=== PATIENT | male | born 1965 | race African-American/Black ===

== ENCOUNTER 2021-01-02 21:08 | Emergency (ER) | payer OTHER, SELFPAY ==
[2021-01-03 00:40] LABS: Absolute Lymphocytes (CBC) 0.5 K/uL (0.7-4.9); Basophils % 0.2 % (0-1.3); Hematocrit 34.8 % (39.6-49.0); Lymphocytes % 5.6 % (15.3-44.8); MPV 7.8 fL (7.6-11.3); RBC Red Blood Cell Count 3.94 M/uL (4.33-5.43)
[2021-01-03] MEDS ORDERED: FAMOTIDINE 20 MG/2 ML VIAL IV ONE (00:56)
[2021-01-03] MEDS ORDERED: NA CHLORIDE 0.9% 1,000 ML ONE (00:56)
[2021-01-03] MEDS ORDERED: ONDANSETRON 4 MG/2 ML VIAL ONE (00:56)
[2021-01-03 01:03] LABS: ALT/SGPT 25 U/L (12-78); AST/SGOT 18 U/L (15-37); Albumin 3.5 g/dL (3.4-5.0); Alkaline Phosphatase 52 U/L (45-117); BUN Blood Urea Nitrogen 15 mg/dL (7-18); Bicarbonate 28 mmol/L (21-32); Bilirubin Direct < 0.1 mg/dL (0-0.2); Bilirubin Total 0.2 mg/dL (0.2-1.0); Glucose Level 95 mg/dL (74-106); Lipase 80 U/L (73-393); Potassium 4.2 mmol/L (3.5-5.1); Protein, Total 7.4 g/dL (6.4-8.2); Sodium Level 140 mmol/L (136-145)
[2021-01-03 01:51] LABS: Urine Blood Trace-lysed (Negative); Urine Glucose Negative (Negative); Urine Protein Negative (Negative); Urine Specific Gravity >=1.030 (1.005-1.030); Urine pH 5.5 (5.0-7.0)
--- NOTE | 2021-01-03 02:20 | EDPHYS ---
Physician Documentation [facility] Name: Rafael Hammond Age: 55 yrs Sex: Male : 1965 Arrival Date: 01/02/2021 Time: 21:11 Bed 16 Private MD: ED Physician Vega Garrett HPI: 01/03 00:05 This 55 yrs old Black Male presents to ER via EMS with complaints of ETOH Abuse, mh7 Vomiting. 00:05 The patient presents to the emergency department with nausea, that is mild, vomiting, mh7 that is intermittent, 2 times since the onset of symptoms, described as clear fluid. Onset: The symptoms/episode began/occurred just prior to arrival, today. Possible causes: Alcohol use. The symptoms are aggravated by nothing. The symptoms are alleviated by nothing. Associated signs and symptoms: Pertinent positives: nausea, vomiting, Pertinent negatives: abdominal pain, anorexia, belching, constipation, diarrhea, dysuria, fever, flatulence, GI bleeding, hematuria. Severity of symptoms: At their worst the symptoms were moderate today, in the emergency department the symptoms have improved markedly. Patient reports drinking beer then 2 glasses of vodka tonight. He later started having nausea and vomiting 2 episodes. He denies any headache, chest pain, abdominal pain, fever, cough, shortness of breath, diarrhea, dizziness, numbness/tingling, or weakness.. Historical: - Allergies: 01/02 22:26 No Known Allergies; kg - Home Meds: 22:26 None [Active]; kg ROS: 01/03 00:05 Constitutional: Negative for fever, chills, and weight loss, Eyes: Negative for injury, mh7 pain, redness, and discharge, ENT: Negative for injury, pain, and discharge, Neck: Negative for injury, pain, and swelling, Cardiovascular: Negative for chest pain, palpitations, and edema, Respiratory: Negative for shortness of breath, cough, wheezing, and pleuritic chest pain, Back: Negative for injury and pain, : Negative for injury, bleeding, discharge, and swelling, MS/Extremity: Negative for injury and deformity, Skin: Negative for injury, rash, and discoloration, Neuro: Negative for headache, weakness, numbness, tingling, and seizure, Psych: Negative for depression, anxiety, suicide ideation, homicidal ideation, and hallucinations, Allergy/Immunology: Negative for hives, rash, and allergies, Endocrine: Negative for neck swelling, polydipsia, polyuria, polyphagia, and marked weight changes, Hematologic/Lymphatic: Negative for swollen nodes, abnormal bleeding, and unusual bruising. Exam: 00:05 Constitutional: This is a well developed, well nourished patient who is awake, alert, mh7 and in no acute distress. Head/Face: Normocephalic, atraumatic. Eyes: Pupils equal round and reactive to light, extra-ocular motions intact. Lids and lashes normal. Conjunctiva and sclera are non-icteric and not injected. Cornea within normal limits. Periorbital areas with no swelling, redness, or edema. ENT: Nares patent. No nasal discharge, no septal abnormalities noted. Tympanic membranes are normal and external auditory canals are clear. Oropharynx with no redness, swelling, or masses, exudates, or evidence of obstruction, uvula midline. Mucous membranes moist. Neck: Trachea midline, no thyromegaly or masses palpated, and no cervical lymphadenopathy. Supple, full range of motion without nuchal rigidity, or vertebral point tenderness. No Meningismus. Chest/axilla: Normal chest wall appearance and motion. Nontender with no deformity. No lesions are appreciated. Cardiovascular: Regular rate and rhythm with a normal S1 and S2. No gallops, murmurs, or rubs. Normal PMI, no JVD. No pulse deficits. Respiratory: Lungs have equal breath sounds bilaterally, clear to auscultation and percussion. No rales, rhonchi or wheezes noted. No increased work of breathing, no retractions or nasal flaring. Abdomen/GI: Soft, non-tender, with normal bowel sounds. No distension or tympany. No guarding or rebound. No evidence of tenderness throughout. Back: No spinal tenderness. No costovertebral tenderness. Full range of motion. Skin: Warm, dry with normal turgor. Normal color with no rashes, no lesions, and no evidence of cellulitis. MS/ Extremity: Pulses equal, no cyanosis. Neurovascular intact. Full, normal range of motion. Neuro: Awake and alert, GCS 15, oriented to person, place, time, and situation. Cranial nerves II-XII grossly intact. Motor strength 5/5 in all extremities. Sensory grossly intact. Cerebellar exam normal. Normal gait. Psych: Awake, alert, with orientation to person, place and time. Behavior, mood, and affect are within normal limits. Vital Signs: 01/02 22:25 BP 94 / 53; Pulse 71; Resp 18; Temp 97.4(TE); Pulse Ox 100% on R/A; Weight 86.64 kg kg (R); Height 5 ft. 9 in. (175.26 cm) (R); Pain 0/10; 01/03 00:04 BP 117 / 72; Pulse 68; Resp 16 S; Pulse Ox 96% on R/A; bb 00:30 BP 101 / 61; Pulse 60; Resp 16; Pulse Ox 97% on R/A; jb4 01/02 22:25 Body Mass Index 28.21 (86.64 kg, 175.26 cm) kg MDM: 02:16 Differential diagnosis: gastritis, pancreatitis, Alcohol Intoxication. Data reviewed: [facility] vital signs, nurses notes, EMS record, lab test result(s), CBC, electrolytes, EKG. Data interpreted: Pulse oximetry: on room air is 97 %. Interpretation: normal. Counseling: I had a detailed discussion with the patient and/or guardian regarding: the historical points, exam findings, and any diagnostic results supporting the discharge/admit diagnosis, lab results, the need for outpatient follow up, to return to the emergency department if symptoms worsen or persist or if there are any questions or concerns that arise at home. Response to treatment: the patient's symptoms have resolved after treatment, the patient's blood pressure is in an acceptable range, mental status has returned to baseline, the patient no longer shows bradycardia, the patient is not short of breath, the patient is not tachycardic, the patient's pain is gone, the patient's temperature has normalized, the patient is now symptom free. 02:18 [facility] medically screened. [facility] 01/03 00:11 Order name: Acetaminophen; Complete Time: [facility] 01/03 00:11 Order name: Basic Metabolic Panel; Complete Time: : [facility] 01/03 00:11 Order name: CBC with Diff; Complete Time: : [facility] 01/03 00:11 Order name: ETOH Level; Complete Time: : [facility] 01/03 00:11 Order name: Hepatic Function; Complete Time: [facility] 01/03 00:11 Order name: PT-INR; Complete Time: : [facility] 01/03 00:11 Order name: Ptt, Activated; Complete Time: : [facility] 01/03 00:11 Order name: Salicylate; Complete Time: : [facility] 01/03 00:11 Order name: Urine Drug Screen; Complete Time: 03:17 [facility] 01/03 00:11 Order name: Lipase; Complete Time: : [facility] 01/03 01:51 Order name: Urine Dipstick-Ancillary; Complete Time: 03:17 [facility] 01/03 00:11 Order name: EKG; Complete Time: 00:12 [facility] 01/03 00:11 Order name: EKG - Nurse/Tech; Complete Time: 00:53 [facility] 01/03 00:11 Order name: IV Saline Lock; Complete Time: 00:24 [facility] 01/03 00:11 Order name: Labs collected and sent; Complete Time: 00:24 [facility] 01/03 00:11 Order name: Urine Dipstick-Ancillary (obtain specimen); Complete Time: 01:40 [facility] Administered Medications: 00:29 Drug: Zofran (Ondansetron) 4 mg Route: IVP; Site: left antecubital; kg 00:29 Drug: Pepcid (famotidine) 20 mg Route: IVP; Site: left antecubital; kg 00:30 Drug: NS 0.9% 1000 ml Route: IV; Rate: 1000 ml; Site: left antecubital; kg Disposition Summary: 01/03/21 02:18 Discharge Ordered [facility]: [facility] Problem: [facility] Symptoms: have improved [facility] Condition: Stable [facility] Diagnosis - Alcohol use, unspecified with intoxication [facility] - Nausea with vomiting, unspecified [facility] Followup: [facility] - With: Private Physician - When: 1 - 2 days - Reason: Worsening of condition, Recheck today's complaints, Continuance of care, Re-evaluation by your physician Discharge Instructions: - Discharge Summary Sheet [facility] - Nausea and Vomiting, Adult [facility] - Alcohol Intoxication, [id number] Forms: - Medication Reconciliation Form [facility] - Thank You Letter [facility] - Antibiotic Education [facility] - Prescription Opioid Use [facility] Signatures: Dispatcher [employer] Vega Zambrano MD MD mh7 Lily Remy RN RN kg Corrections: (The following items were deleted from the chart) 00:11 00:11 Suicide Screening ([place]) ordered. mh7 mh7
--- NOTE | 2021-01-03 02:20 | ER ---
Nurse's Notes [facility] Name: Rafael Hammond Age: 55 yrs Sex: Male : 1965 Arrival Date: 01/02/2021 Time: 21:11 Bed 16 Private MD: Diagnosis: Alcohol use, unspecified with intoxication;Nausea with vomiting, unspecified Presentation: 01/02 22:25 Chief complaint: EMS states: ETOH abuse, Vomiting. Coronavirus screen: Vaccine status: kg Patient reports being unvaccinated. Ebola Screen: Patient negative for fever greater than or equal to 101.5 degrees Fahrenheit, and additional compatible Ebola Virus Disease symptoms Patient denies exposure to infectious person. Patient denies travel to an Ebola-affected area in the 21 days before illness onset. Initial Sepsis Screen: Does the patient meet any 2 criteria? No. Patient's initial sepsis screen is negative. Does the patient have a suspected source of infection? No. Patient's initial sepsis screen is negative. Risk Assessment: Do you want to hurt yourself or someone else? Patient reports no desire to harm self or others. Onset of symptoms is unknown. 22:25 Method Of Arrival: EMS: [facility] kg 22:25 Acuity: SHARITA 4 kg Historical: - Allergies: 22:26 No Known Allergies; kg - Home Meds: 22:26 None [Active]; kg Screenin/04 00:01 Abuse screen: Denies threats or abuse. Nutritional screening: No deficits noted. bb Tuberculosis screening: No symptoms or risk factors identified. Fall Risk None identified. Assessment: 00:01 General: Appears in no apparent distress. Behavior is calm, cooperative. General: bb Reports he drank too much alcohol and feels "bad". Pain: Denies pain. Neuro: Level of Consciousness is awake, alert, obeys commands, Oriented to person, place, time, situation. Cardiovascular: Capillary refill < 3 seconds Patient's skin is warm and dry. Respiratory: Respiratory effort is even, unlabored, Respiratory pattern is regular. GI: Abdomen is non-distended. Derm: Skin is dry, Skin is normal, Skin temperature is warm. Musculoskeletal: Circulation, motion, and sensation intact. 01:00 Reassessment: Patient appears in no apparent distress at this time. Patient and/or jb4 family updated on plan of care and expected duration. Pain level reassessed. Patient is alert, oriented x 3, equal unlabored respirations, skin warm/dry/pink. 02:18 Reassessment: Patient appears in no apparent distress at this time. Patient and/or jb4 family updated on plan of care and expected duration. Pain level reassessed. Patient is alert, oriented x 3, equal unlabored respirations, skin warm/dry/pink. 02:50 Reassessment: Patient appears in no apparent distress at this time. Patient and/or jb4 family updated on plan of care and expected duration. Pain level reassessed. Patient is alert, oriented x 3, equal unlabored respirations, skin warm/dry/pink. D/c pending ride home. 05:38 Reassessment: Patient appears in no apparent distress at this time. Patient and/or jb4 family updated on plan of care and expected duration. Pain level reassessed. Pt is resting in bed, respirations are even and unlabored, d/c pending ride home. Vital Signs: 01/02 22:25 BP 94 / 53; Pulse 71; Resp 18; Temp 97.4(TE); Pulse Ox 100% on R/A; Weight 86.64 kg kg (R); Height 5 ft. 9 in. (175.26 cm) (R); Pain 0/10; 01/03 00:04 BP 117 / 72; Pulse 68; Resp 16 S; Pulse Ox 96% on R/A; bb 00:30 BP 101 / 61; Pulse 60; Resp 16; Pulse Ox 97% on R/A; jb4 01/02 22:25 Body Mass Index 28.21 (86.64 kg, 175.26 cm) kg ED Course: 01/02 21:11 Patient arrived in ED. mr 22:26 Triage completed. kg 23:47 Vega Garrett MD is Attending Physician. [facility] 23:51 Amilcar Hayden, JADEN is Primary Nurse. jb4 01/03 00:01 Patient has correct armband on for positive identification. Bed in low position. Call bb light in reach. Side rails up X 1. Pulse ox on. NIBP on. 00:20 Inserted saline lock: 20 gauge in left antecubital area, using aseptic technique. kg 00:24 Acetaminophen Sent. kg 00:24 CBC with Diff Sent. kg 00:24 Hepatic Function Sent. kg 00:24 ETOH Level Sent. kg 00:24 PT-INR Sent. kg 00:24 Ptt, Activated Sent. kg 00:24 Salicylate Sent. kg 00:53 No provider procedures requiring assistance completed. kg Administered Medications: 00:29 Drug: Zofran (Ondansetron) 4 mg Route: IVP; Site: left antecubital; kg 00:29 Drug: Pepcid (famotidine) 20 mg Route: IVP; Site: left antecubital; kg 00:30 Drug: NS 0.9% 1000 ml Route: IV; Rate: 1000 ml; Site: left antecubital; kg Outcome: 02:18 Discharge ordered by MD. joy 06:30 Patient left the ED. bb Signatures: Mara Manrique Brenda RN RN bb Amilcar Hayden RN RN jb4 Vega Garrett MD MD 7 Lily Remy RN RN kg
[2021-01-03 02:31] LABS: Barbiturates NEGATIVE (NEGATIVE); Benzodiazepines NEGATIVE (NEGATIVE); Cocaine NEGATIVE (NEGATIVE); METHAMPHETAM NEGATIVE (NEGATIVE); Methadone NEGATIVE (NEGATIVE); Opiates NEGATIVE (NEGATIVE); Phencyclidine NEGATIVE (NEGATIVE); THC Cannibis POSITIVE (NEGATIVE)
[2021-01-03 06:35] VITALS: TEMP 97.4
[2021-01-03 06:38] VITALS: BP 101/61; O2SAT 97
--- NOTE | 2021-01-03 15:12 | EKG ---
Test Date: 2021-01-03 Test Time: 00:44:16 Director Global: SADAF MEASUREMENT RESULTS: Intervals: Rate: 61 VA: 170 QRSD: 70 QT: 388 QTc: 390 [place]: P: 62 VA: 170 QRS: 29 T: 44 INTERPRETIVE STATEMENTS: Normal sinus rhythm Normal ECG No previous ECG available for comparison Electronically Signed On 01-03-21 15:10:48 CDT by Héctor Neri
== END 2021-01-03 06:30 | disposition home or self-care (01) ==
LOC: ER 21:08
DX: F10.929 Alcohol use, unspecified with intoxication, unspecified (principal)
CPT/HCPCS: 93005; 85025; 80048; 36415; 80320; 80329 ×2; 85610; 80076; 85730; 81003; 83690; 80307; 96375; 96374; 99284; J7030; J2405

== ENCOUNTER 2021-03-04 19:02 | Emergency (ER) | payer OTHER ==
[2021-03-04] MEDS ORDERED: NA CHLORIDE 0.9% 1,000 ML ONE (19:35)
[2021-03-04 19:36] LABS: Urine Blood Trace-lysed (Negative); Urine Glucose Negative (Negative); Urine Protein Negative (Negative); Urine Specific Gravity <=1.005 (1.005-1.030)
[2021-03-04 19:45] LABS: Absolute Lymphocytes (CBC) 0.8 K/uL (0.7-4.9); Basophils % 0.3 % (0-1.3); Hematocrit 35.9 % (39.6-49.0); MPV 7.2 fL (7.6-11.3); RBC Red Blood Cell Count 4.15 M/uL (4.33-5.43)
[2021-03-04 19:55] LABS: Barbiturates NEGATIVE (NEGATIVE); Benzodiazepines NEGATIVE (NEGATIVE); Cocaine NEGATIVE (NEGATIVE); METHAMPHETAM NEGATIVE (NEGATIVE); Methadone NEGATIVE (NEGATIVE); Opiates NEGATIVE (NEGATIVE); Phencyclidine NEGATIVE (NEGATIVE); THC Cannibis NEGATIVE (NEGATIVE)
[2021-03-04 19:56] LABS: Potassium 3.7 mmol/L (3.5-5.1)
--- NOTE | 2021-03-04 19:58 | RAD REPORT ---
EXAM DESCRIPTION: CT - Head Brain Wo Cont - 03/04/2021 7:50 pm CLINICAL HISTORY: dizziness, blurred vision COMPARISON: Head angio dated 03/04/2021 TECHNIQUE: All CT scans are performed using dose optimization technique as appropriate and may inclu de automated exposure control or mA/KV adjustment according to patient size. FINDINGS: No intracranial hemorrhage, hydrocephalus or extra-axial fluid collection.No areas of brai n edema or evidence of midline shift. The paranasal sinuses and mastoids are clear. The calvarium is intact. IMPRESSION: No acute intracranial abnormality.
--- NOTE | 2021-03-04 20:00 | RAD REPORT ---
EXAM DESCRIPTION: CT - Head angio - 03/04/2021 7:51 pm CLINICAL HISTORY: dizziness. blurred vision COMPARISON: No comparisons TECHNIQUE: CT angiography of the head was performed with MIPs. All CT scans are performed using dose optimization technique as appropriate and may include automated exposure control or mA/KV adjustment according to patient size. FINDINGS: Anterior circulation: No aneurysm or large vessel occlusion. No hemodynamically significant stenosis. No arteriovenous malf ormation identified. Posterior circulation: No aneurysm or large vessel occlusion. No hemodynamically significant stenosis. No arteriovenous malf ormation identified. type right COURT ADVOCATE. IMPRESSION: No significant flow abnormality is detected.
--- NOTE | 2021-03-04 20:02 | RAD REPORT ---
EXAM DESCRIPTION: CT - Neck Angio - 03/04/2021 7:50 pm CLINICAL HISTORY: dizziness, blured vision COMPARISON: No comparisons TECHNIQUE: CT angiography of the neck vessels was performed with MIPs. All CT scans are performed using dose optimization technique as appropriate and may include automated exposure control or mA/KV adjustment according to patient size. FINDINGS: A left aortic arch is identified with normal three vessel configuration of the great vesse ls. No significant flow abnormality is seen of the common carotid bilaterally. No significant stenosis is identified involving the cervical segments of both internal carotid arteri es. Normal flow is seen within both vertebral arteries. IMPRESSION: No significant flow abnormality of the neck vessels is identified.
--- NOTE | 2021-03-04 20:33 | ER ---
Nurse's Notes [facility] Name: Rafael Hammond Age: 55 yrs Sex: Male : 1965 Arrival Date: 03/04/2021 Time: 19:03 Bed 6 Private MD: Diagnosis: Dizziness. Acute labyrinthitis Presentation: 03/04 19:03 Chief complaint: EMS states: they were called for a patient who was driving home and ap3 was experiencing blurred vision and dizziness. EMS arrived to the patients home, where the patient met EMS. EMS reports the patient ambulated without difficulty. Coronavirus screen: At this time, the client does not indicate any symptoms associated with coronavirus-19. Ebola Screen: No symptoms or risks identified at this time. Initial Sepsis Screen: Does the patient meet any 2 criteria? No. Patient's initial sepsis screen is negative. Does the patient have a suspected source of infection? No. Patient's initial sepsis screen is negative. Risk Assessment: Do you want to hurt yourself or someone else? Patient reports no desire to harm self or others. Onset of symptoms was March 04, 2021. 19:03 Method Of Arrival: EMS: [facility] ap3 19:03 Acuity: SHARITA 3 ap3 Triage Assessment: 19:06 General: Appears in no apparent distress. comfortable, Behavior is calm, cooperative. ap3 Pain: Denies pain. Neuro: Level of Consciousness is awake, alert, obeys commands, Oriented to person, place, time, situation, Speech is slurred, Facial symmetry appears normal, Reports blurred vision dizziness. Respiratory: Airway is patent Respiratory effort is even, unlabored, Respiratory pattern is regular, symmetrical. Historical: - Allergies: 19:05 No Known Allergies; ap3 - Home Meds: 19:05 None [Active]; ap3 - PMHx: 19:05 None; ap3 - Immunization history:: Client reports having NOT received the Covid vaccine. - Social history:: Smoking status: unknown Patient uses alcohol, on a daily basis. Screenin:06 Abuse screen: Denies threats or abuse. Nutritional screening: No deficits noted. ap3 Tuberculosis screening: No symptoms or risk factors identified. Fall Risk No fall in past 12 months (0 pts). Secondary diagnosis (15 points) patient feels dizzy with blurred vision. Gait- Weak (10 pts.). Total [place] Fall Scale indicates High Risk Score (45 or more points). Fall prevention measures have been instituted. Side Rails Up X 2 Placed Close to Nursing Station Frequent Obs/Assessments Occuring As available patient and family educated on Fall Prevention Program and Strategies. Assessment: 20:20 General: Appears distressed, uncomfortable, Behavior is calm, cooperative, anxious. df1 Pain: Complains of pain in abdomen Pain currently is 10 out of 10 on a pain scale. Neuro: No deficits noted. Cardiovascular: No deficits noted. Respiratory: No deficits noted. GI: Abdomen is obese, Bowel sounds present X 4 quads. Abd is soft Abdomen is tender to palpation. : No deficits noted. EENT: No deficits noted. Derm: No deficits noted. Musculoskeletal: No deficits noted. Vital Signs: 19:07 BP 135 / 79; Pulse 87; Resp 18; Temp 98.6; Pulse Ox 100% on R/A; Weight 81.19 kg; ap3 Height 5 ft. 9 in. (175.26 cm); 20:21 BP 140 / 83; Pulse 72; Resp 18; Pulse Ox 100% on R/A; df1 20:39 BP 138 / 83; Pulse 75; Resp 16; Pulse Ox 99% on R/A; Pain 0/10; lc1 19:07 Body Mass Index 26.43 (81.19 kg, 175.26 cm) ap3 Visual Acuity: 19:57 Left Eye Visual acuity 20/50, Pupil size 3 mm, Normal, React To Light, Reactive To df1 Accomodation; Right Eye Visual acuity 20/40, Pupil size 3 mm, Normal, React To Light, Reactive To Accomodation; Both Eyes Visual acuity 20/40; Without Lenses; ED Course: 19:03 Patient arrived in ED. ap3 19:04 Christopher Duarte MD is Attending Physician. pkl 19:05 Triage completed. ap3 19:07 Arm band placed on right wrist. ap3 19:07 Patient has correct armband on for positive identification. Bed in low position. Call ap3 light in reach. Side rails up X2. Pulse ox on. NIBP on. Door closed. Noise minimized. 19:17 Jannet Marshall is Primary Nurse. df1 19:34 XRAY CXR (1 view) Sent. df1 19:34 CBC with Diff Sent. df1 19:34 Chem 7 Sent. df1 19:34 Inserted saline lock: 20 gauge in right antecubital area, using aseptic technique. df1 19:39 XRAY CXR (1 view) In Process Unspecified. EDMS 19:50 CT Head Brain wo Cont In Process Unspecified. EDMS 19:50 CT Neck Angio In Process Unspecified. EDMS 19:51 CT Head Angio In Process Unspecified. EDMS 20:21 No provider procedures requiring assistance completed. df1 20:39 pt ambulated down hunter and back, denies any dizziness, light headedness, stated he lc1 feels better, back in bed, vitals repeated. 20:39 IV discontinued, bleeding controlled, Pressure dressing applied. lc1 Administered Medications: 19:38 Drug: NS 0.9% 1000 ml Route: IV; Rate: 125 ml/hr; Site: right antecubital; df1 Outcome: 20:32 Discharge ordered by . pktono 20:39 Condition: improved lc1 20:39 Discharged to home lc1 20:39 Discharged to home ambulatory. 20:47 Discharge instructions given to patient, Instructed on discharge instructions, lc1 Demonstrated understanding of instructions. 20:54 Discharge instructions given to patient, Instructed on discharge instructions, follow df1 up and referral plans. Demonstrated understanding of instructions, follow-up care. 20:55 Patient left the ED. df1 Signatures: Dispatcher [employer] Christopher Brooks MD MD pkEmily Jansen lc1 Yesenia Lubin, RN RN Jannet Lunsford df1 Corrections: (The following items were deleted from the chart) 20:47 20:39 Discharged to home ambulatory, 1 lc1
--- NOTE | 2021-03-04 20:33 | EDPHYS ---
Physician Documentation [facility] Name: Rafael Hammond Age: 55 yrs Sex: Male : 1965 Arrival Date: 03/04/2021 Time: 19:03 Bed 6 Private MD: ED Physician Christopher Duarte HPI: 03/04 19:22 This 55 yrs old Black Male presents to ER via EMS with unknown complaint. pkl 19:22 The patient presents with dizziness, lightheadedness, sense of spinning. Onset: The pkl symptoms/episode began/occurred just prior to arrival, 1 hour(s) ago, and improved on arrival to ER. Associated signs and symptoms: Pertinent positives: blurred vision. The patient has not experienced similar symptoms in the past. Historical: - Allergies: 19:05 No Known Allergies; ap3 - Home Meds: 19:05 None [Active]; ap3 - PMHx: 19:05 None; ap3 - Immunization history:: Client reports having NOT received the Covid vaccine. - Social history:: Smoking status: unknown Patient uses alcohol, on a daily basis. ROS: 19:22 ENT: Negative for injury, pain, and discharge. pkl 19:22 Eyes: Positive for blurry vision. 19:22 Neck: Negative for injury or acute deformity, stiffness. 19:22 Cardiovascular: Negative for chest pain. 19:22 Respiratory: Negative for cough, shortness of breath. 19:22 Abdomen/GI: Negative for abdominal pain, nausea, vomiting, and diarrhea. 19:22 Back: Negative for acute changes. 19:22 : Negative for urinary symptoms. 19:22 MS/extremity: Negative for acute changes. 19:22 Skin: Negative for rash. 19:22 Neuro: Positive for 19:22 Neuro: Positive for dizziness. Exam: 19:26 Head/Face: Normocephalic, atraumatic. Eyes: Pupils equal round and reactive to light, pkl extra-ocular motions intact. Lids and lashes normal. Conjunctiva and sclera are non-icteric and not injected. Cornea within normal limits. Periorbital areas with no swelling, redness, or edema. ENT: Nares patent. No nasal discharge, no septal abnormalities noted. Tympanic membranes are normal and external auditory canals are clear. Oropharynx with no redness, swelling, or masses, exudates, or evidence of obstruction, uvula midline. Mucous membranes moist. Neck: Trachea midline, no thyromegaly or masses palpated, and no cervical lymphadenopathy. Supple, full range of motion without nuchal rigidity, or vertebral point tenderness. No Meningismus. Chest/axilla: Normal chest wall appearance and motion. Nontender with no deformity. No lesions are appreciated. Cardiovascular: Regular rate and rhythm with a normal S1 and S2. No gallops, murmurs, or rubs. Normal PMI, no JVD. No pulse deficits. Respiratory: Lungs have equal breath sounds bilaterally, clear to auscultation and percussion. No rales, rhonchi or wheezes noted. No increased work of breathing, no retractions or nasal flaring. Abdomen/GI: Soft, non-tender, with normal bowel sounds. No distension or tympany. No guarding or rebound. No evidence of tenderness throughout. Back: No spinal tenderness. No costovertebral tenderness. Full range of motion. Skin: Warm, dry with normal turgor. Normal color with no rashes, no lesions, and no evidence of cellulitis. MS/ Extremity: Pulses equal, no cyanosis. Neurovascular intact. Full, normal range of motion. 19:26 Neuro: Orientation: is normal, Mentation: is normal, Cranial nerves: grossly normal, Cerebellar function: normal finger to nose testing, heel to soto testing is normal, Motor: is normal, Sensation: is normal, Gait: is steady. Vital Signs: 19:07 BP 135 / 79; Pulse 87; Resp 18; Temp 98.6; Pulse Ox 100% on R/A; Weight 81.19 kg; ap3 Height 5 ft. 9 in. (175.26 cm); 20:21 BP 140 / 83; Pulse 72; Resp 18; Pulse Ox 100% on R/A; df1 20:39 BP 138 / 83; Pulse 75; Resp 16; Pulse Ox 99% on R/A; Pain 0/10; lc1 19:07 Body Mass Index 26.43 (81.19 kg, 175.26 cm) ap3 Visual Acuity: 19:57 Left Eye Visual acuity 20/50, Pupil size 3 mm, Normal, React To Light, Reactive To df1 Accomodation; Right Eye Visual acuity 20/40, Pupil size 3 mm, Normal, React To Light, Reactive To Accomodation; Both Eyes Visual acuity 20/40; Without Lenses; MDM: 19:04 Patient medically screened. pkl 20:28 Data reviewed: vital signs, nurses notes. ED course: Patient feeling better. pkl Asymptomatic. Discussed lab, EKG and imaging studies with patient. Advised to follow up with PCP in 1 to 2 days. To return if necessary. Patient understood instructions. 03/04 19:16 Order name: CBC with Diff pkl 03/04 19:16 Order name: Chem 7; Complete Time: 20:21 pkl 03/04 19:16 Order name: UDS; Complete Time: 20:21 pkl 03/04 19:16 Order name: CBC with Automated Diff; Complete Time: 20:21 EDMS 03/04 19:35 Order name: Urine Dipstick-Ancillary; Complete Time: 20:21 EDMS 03/04 19:16 Order name: Saline Lock; Complete Time: 19:34 pkl 03/04 19:16 Order name: EKG; Complete Time: 19:17 pkl 03/04 19:17 Order name: CT Head Brain wo Cont; Complete Time: 20:21 pkl 03/04 19:18 Order name: CT Head Angio; Complete Time: 20:21 pkl 03/04 19:20 Order name: CT Neck Angio; Complete Time: 20:21 pkl 03/04 19:20 Order name: Visual Acuity; Complete Time: 19:59 pkl Administered Medications: 19:38 Drug: NS 0.9% 1000 ml Route: IV; Rate: 125 ml/hr; Site: right antecubital; df1 Disposition Summary: 03/04/21 20:32 Discharge Ordered Location: Home pkl Problem: new pkl Symptoms: have improved pkl Condition: Stable pkl Diagnosis - Dizziness. Acute labyrinthitis pkl Followup: pkl - With: Private Physician - When: 1 - 2 days - Reason: Re-evaluation by your physician Discharge Instructions: - Discharge Summary Sheet pkl Forms: - Work release form pkl - Medication Reconciliation Form pkl - Thank You Letter pkl - Antibiotic Education pkl - Prescription Opioid Use pkl Signatures: Dispatcher [employer] EDChristopher Amin MD MD pkl Yesenia Lubin RN RN ap3 Jannet Marshall df1 Corrections: (The following items were deleted from the chart) 19:17 19:16 CREATININE, SERUM+[id number].LAB.BRZ ordered. EDMS EDMS
[2021-03-04 21:02] VITALS: TEMP 98.6
[2021-03-04 21:05] VITALS: BP 138/83; O2SAT 99
--- NOTE | 2021-03-05 10:28 | RAD REPORT ---
EXAM DESCRIPTION: Zane Single View03/05/2021 10:23 am CLINICAL HISTORY: Blurred vision COMPARISON: none FINDINGS: The lungs appear clear of acute infiltrate. The heart is normal size IMPRESSION: No acute abnormalities displayed
== END 2021-03-04 20:55 | disposition home or self-care (01) ==
LOC: ER 19:02
DX: H83.09 Labyrinthitis, unspecified ear (principal)
CPT/HCPCS: 93005; 85025; 80048; 36415; 82565; 81003; 80307; 70450; 70496; 70498; 71045; 99284; Q9967 ×2; J7030